=== PATIENT | male | born 1945 | race Caucasian/White ===

== ENCOUNTER 2024-03-22 20:12 | Emergency (ER) | payer MEDICARE ==
[2024-03-22] MEDS: SODIUM CHLORIDE 0.9% 1,000 ML IV STA (20:37)
[2024-03-22] MEDS: MORPHINE SULFATE 4 MG/ML SYRINGE IVP STA (20:38)
--- NOTE | 2024-03-22 20:55 | ED ---
Upper Extremity HPI - General Chief Complaint: Wound/Laceration Stated Complaint: Lft Hand Injury Time Seen by Provider: 03/22/24 20:18 Source: patient, RN notes reviewed Mode of arrival: EMS Limitations: no limitations - History of Present Illness Initial Comments: This is a 78-year-old male who presents to the emergency department for an injury to his left hand. States that he was putting a board through a table saw and it had gone in the wrong way and his left hand went inside by mistake. He injured all of the fingers on the left hand aside from the thumb. He is unable to move his pointer finger. Unsure when his last tetanus vaccine was. Pain is currently under control after being given morphine by EMS. MD Complaint: Injury to:: left, hand - Related Data Allergies Allergy/AdvReac Type Severity Reaction Status Date / Time No Known Allergies Allergy Verified 03/22/24 20:21 Review of Systems ROS Statement: Those systems with pertinent positive or pertinent negative responses have been documented in the HPI. ROS Other: All systems not noted in ROS Statement are negative. Past Medical History Past Medical History: Hypertension, Seizure Disorder Additional Past Medical History / Comment(s): No longer takes siezure meds. Only one siezure. History of Any Multi-Drug Resistant Organisms: None Reported Additional Past Surgical History / Comment(s): Left hand middle finger surgury 20 years ago. Finger bent backwards. Past Psychological History: No Psychological Hx Reported Smoking Status: Never smoker Past Alcohol Use History: None Reported Past Drug Use History: None Reported General Exam Limitations: no limitations General appearance: alert, in no apparent distress Head exam: Present: atraumatic, normocephalic, normal inspection Respiratory exam: Present: normal lung sounds bilaterally. Absent: respiratory distress, wheezes, rales, rhonchi, stridor Cardiovascular Exam: Present: regular rate, normal rhythm, normal heart sounds. Absent: systolic murmur, diastolic murmur, rubs, gallop, clicks Extremities exam: Present: other (The left index finger has a large open wound in the center with exposed tendon that is severed. Fingers 3 through 5 have large open jagged lacerations. Open fracture to the left fifth finger. Delayed cap refill in the fourth finger with dusky appearance.) Neurological exam: Present: alert, oriented X3, CN II-XII intact Psychiatric exam: Present: normal affect, normal mood Course Vital Signs 03/22/24 03/22/24 03/22/24 20:14 20:30 20:45 Temperature 98.2 F Pulse Rate 96 73 70 Respiratory 147 H 12 16 Rate Blood Pressure 179/113 179/113 115/94 O2 Sat by Pulse 98 95 97 Oximetry 03/22/24 03/22/24 03/22/24 21:00 21:15 22:15 Temperature Pulse Rate 85 85 75 Respiratory 18 16 16 Rate Blood Pressure 137/86 140/93 153/88 O2 Sat by Pulse 96 97 96 Oximetry 03/22/24 03/23/24 03/23/24 23:00 00:00 00:19 Temperature 97.8 F Pulse Rate 80 71 Respiratory 24 12 Rate Blood Pressure 132/86 147/93 O2 Sat by Pulse 95 97 Oximetry Procedures - Orthopedic Splinting/Casting Injury #1 Side: left Upper Extremity Injury Location: wrist Upper Extremity Immobilizer: volar splint Medical Decision Making - Medical Decision Making This is a 78 year old male who presents to the emergency department for a left hand injury. Was pt. sent in by a medical professional or institution? @ -No Did you speak to anyone other than the patient for history? @ -No Did you review nursing and triage notes? @ -Yes, and I agree, it is accurate with regards to the patient's symptoms. Were old charts reviewed? @ -No Differential Diagnosis? @ -Differential Musculoskeletal: Muscular strain, contusion, ligament sprain, fracture, arthritis, septic arthritis, bursitis, cellulitis, muscle spasm, nerve compression, DVT, arterial occlusion, herpes zoster, electrolyte abnormality, tumor.... This is not meant to be in all inclusive list EKG interpreted by me (3pts min.)? @ -EKG interpreted by me demonstrating the following: Sinus rhythm. Ventricular rate 78 bpm, ID interval 212 ms, QRS duration 93 ms, QTc 394 ms. X-rays interpreted by me (1pt min.)? @ -X-ray of the left hand obtained. My interpretation identifies a fracture of the left fifth finger and extensive soft tissue damage. CT interpreted by me (1pt min.)? @ -Not obtained U/S interpreted by me (1pt. min.)? @ -Not obtained What testing was considered but not performed? (CT, X-rays, U/S, labs)? Why? @ -None What meds were considered but not given? Why? @ -None Did you discuss the management of the patient with other professionals? @ -Yes, Dr. Mcclain, orthopedics, who advised transfer to a facility with a hand specialist available. Case then discussed with Dr. Livingston, hand specialist at [facility], who advised transfer to a tertiary facility where tendon grafts are available. Dr. Montes accepts the patient for ED to ED transfer at [facility]. Did you reconcile home meds? @ -No Was smoking cessation discussed for >3mins.? @ -No Was critical care preformed (if so, how long)? @ -No Were there social determinants of health that impacted care today? How? (Homelessness, low income, unemployed, alcoholism, drug addiction, transportation, low edu. Level, literacy, decrease access to med. care, longterm, rehab)? @ -No Was there de-escalation of care discussed even if they declined? (Discuss DNR or withdrawal of care, Hospice)? @ -No What co-morbidities impacted this encounter? (DM, HTN, Smoking, COPD, CAD, Cancer, CVA, Hep., AIDS, mental health diagnosis, sleep apnea, morbid obesity)? @ -None Was patient admitted / discharged? @ -Transferred. On arrival he was given 2 g of Kefzol and his tetanus vaccine was updated. The injuries were also cleansed by nursing staff. On exam the patient had extensive soft tissue damage on the palmar aspect of fingers 2 through 5 on his left hand. The index finger's tendon was exposed and severed and the patient had no flexion. He also had no flexion at the DIP joint to fingers 4 and 5. X-ray obtained demonstrating fractures to fingers 4 and 5, which were open. Given the extensive damage, it was not felt that this could be safely repaired in the emergency department and also carried a very high inf ection risk. It needed to go to the OR for washout and repair. Case discussed with Dr. Mcclain, orthopedics, who advised transfer. We did also try reaching out to our orthopedic hand specialist, however she was not on-call and we did not get a response. We obtained preoperative lab work which was unremarkable. Family requested transfer to either [facility] or [facility]. [facility] was contacted and they do not have the capability to care for this kind of injury. Their hand surgeon, Dr. Livingston, advised that he will likely need tendon grafts and recommended transfer to a tertiary facility. Case discussed with [facility] who accepts patient for ED to ED transfer. Dr. Montes is the accepting provider. The hand was bandaged with a large amount of padding on each finger and placed in a volar splint prior to transfer. Undiagnosed new problem with uncertain prognosis? @ -None Drug Therapy requiring intensive monitoring for toxicity (Heparin, Nitro, Insulin, Cardizem)? @ -None Were any procedures done? @ -Floor splint application of the left hand Diagnosis/symptom? @ -Soft tissue damage to the left hand, open fractures of the fingers on the left hand, flexor tendon injuries to the fingers of the left hand Acute, or Chronic, or Acute on Chronic? @ -Acute Uncomplicated (without systemic symptoms) or Complicated (systemic symptoms)? @ -Uncomplicated Side effects of treatment? @ -None Exacerbation, Progression, or Severe Exacerbation] @ -Not applicable Poses a threat to life or bodily function? @ -Yes, this will limit his use of the left hand. This case was discussed in detail with the attending ED physician, Dr. Chen. Presentation, findings, and treatment plan discussed in detail as well. - Lab Data Result diagrams: 03/22/24 20:51 03/22/24 20:51 Lab Results 03/22/24 03/22/24 03/22/24 Range/Units 20:51 20:51 20:51 WBC 8.6 (3.8-10.6) k/uL RBC 4.54 (4.30-5.90) m/uL Hgb 14.6 (13.0-17.5) gm/dL Hct 42.3 (39.0-53.0) % MCV 93.2 (80.0-100.0) fL MCH 32.1 (25.0-35.0) pg MCHC 34.4 (31.0-37.0) g/dL RDW 12.9 (11.5-15.5) % Plt Count 218 (150-450) k/uL MPV 7.1 Neutrophils % 75 % Lymphocytes % 14 % Monocytes % 8 % Eosinophils % 1 % Basophils % 0 % Neutrophils # 6.5 (1.3-7.7) k/uL Lymphocytes # 1.2 (1.0-4.8) k/uL Monocytes # 0.7 (0-1.0) k/uL Eosinophils # 0.1 (0-0.7) k/uL Basophils # 0.0 (0-0.2) k/uL PT 10.9 (10.0-12.5) sec INR 1.0 (<1.2) APTT 22.4 (22.0-30.0) sec Sodium 139 (137-145) mmol/L Potassium 3.9 (3.5-5.1) mmol/L Chloride 106 (98-107) mmol/L Carbon Dioxide 27 (22-30) mmol/L Anion Gap 6 mmol/L BUN 23 H (9-20) mg/dL Creatinine 1.02 (0.66-1.25) mg/dL Est GFR (CKD-EPI)AfAm 82 (>60 ml/min/1.73 sqM) Est GFR (CKD-EPI)NonAf 71 (>60 ml/min/1.73 sqM) Glucose 96 (74-99) mg/dL Calcium 9.1 (8.4-10.2) mg/dL Total Bilirubin 1.2 (0.2-1.3) mg/dL AST 24 (17-59) U/L ALT 19 (4-49) U/L Alkaline Phosphatase 62 (38-126) U/L Total Protein 6.2 L (6.3-8.2) g/dL Albumin 3.9 (3.5-5.0) g/dL - Radiology Data Radiology results: report reviewed, image reviewed Disposition Clinical Impression: Injury of flexor tendon of left hand, Soft tissue injury of left hand, Open fractures of multiple sites of phalanx of left hand Disposition: OTHER INSTITUTION NOT DEFINED Referrals: Xiao Jaime MD [Primary Care Provider] - 1-2 days - Out of Hospital Transfer - Req. Specs Out of Hospital Transfer - Requested Specifics: Other Emergency Center ([facility])
[2024-03-22] MEDS: DIPH,PERTUS(ACELL)TETVAC-LF 0.5 ML VIAL IM ONE (21:03)
[2024-03-22 21:11] LABS: Basophils % (A) 0 %; Eosinophils # (A) 0.1 k/uL (0-0.7); Eosinophils % (A) 1 %; HCT 42.3 % (39.0-53.0); HGB 14.6 gm/dL (13.0-17.5); Lymphocytes # (A) 1.2 k/uL (1.0-4.8); Lymphocytes % (A) 14 %; MCH 32.1 pg (25.0-35.0); MCHC 34.4 g/dL (31.0-37.0); MCV 93.2 fL (80.0-100.0); Mean Platelet Volume 7.1; Monocytes # (A) 0.7 k/uL (0-1.0); Monocytes % (A) 8 %; Neutrophils # (A) 6.5 k/uL (1.3-7.7); Neutrophils % (A) 75 %; Platelet Count 218 k/uL (150-450); RBC 4.54 m/uL (4.30-5.90); RDW 12.9 % (11.5-15.5); WBC 8.6 k/uL (3.8-10.6)
[2024-03-22 21:26] LABS: ALT 19 U/L (4-49); AST 24 U/L (17-59); African American GFR (CKD) 82 (>60 ml/min/1.73 sqM); Albumin 3.9 g/dL (3.5-5.0); Alkaline Phosphatase 62 U/L (38-126); Anion Gap 6 mmol/L; Blood Urea Nitrogen 23 mg/dL (9-20); Calcium 9.1 mg/dL (8.4-10.2); Carbon Dioxide 27 mmol/L (22-30); Chloride 106 mmol/L (98-107); Glucose 96 mg/dL (74-99); Non-African American GFR(CKD) 71 (>60 ml/min/1.73 sqM); Potassium 3.9 mmol/L (3.5-5.1); Sodium 139 mmol/L (137-145); Total Bilirubin 1.2 mg/dL (0.2-1.3); Total Protein 6.2 g/dL (6.3-8.2)
[2024-03-22 21:28] LABS: Partial Thromboplastin Time 22.4 sec (22.0-30.0); Prothrombin Time 10.9 sec (10.0-12.5)
--- NOTE | 2024-03-22 21:33 | XR ---
EXAMINATION TYPE: XR hand complete LT DATE OF EXAM: 03/22/2024 9:05 PM CLINICAL INDICATION:Male, 78 years old with history of Injury; [facility] COMPARISON: None TECHNIQUE: XR hand complete LT Frontal, lateral and oblique views were obtained. FINDINGS: There is a comminuted fracture/crush injury involving the distal phalanx of the fifth digit with overlying soft tissue defect. The digit appears partially covered by overlying cast. There is a curvilinear nondisplaced mildly comminuted fracture involving the distal aspect of the middle phalan x of the fourth digit. There is an associated soft tissue defect appreciated. There is isolated joint space effacement of the PIP joint of the third digit with associated deformity of the joint. Associa lisandro soft tissue swelling of the third digit. There is abnormal articulation of the middle phalanx at the PIP joint of the second digit which can be best appreciated on the oblique views. There is subtle cortical irregularity along the volar surface of the distal phalanx of the first digit. Additional o ssific focus is seen in the adjacent soft tissues concerning for additional fracture component. There is soft tissue edema seen involving the hand. The carpal bones appear intact with joint spaces overa ll maintained. IMPRESSION: Multiple fractures are seen involving the distal aspects of the left hand digits with associated soft tissue abnormalities as summarized described above. There is additional concern for possible disloca tion involving the second digit at the PIP joint. Correlate with exam findings.
[2024-03-22] MEDS: HYDROmorphone 1 MG/ML 1 ML SYRINGE IVP STA (22:00)
[2024-03-23] MEDS: HYDROmorphone 1 MG/ML 1 ML SYRINGE IVP STA (00:06)
[2024-03-23 00:07] VITALS: BP 147/93; PULSE 71; RESP 12
[2024-03-23 00:21] VITALS: TEMP 97.8
== END 2024-03-23 00:21 | disposition other institution (70) ==
LOC: EDBD 20:12 → EC 20:12
DX: S62.609A Fracture of unspecified phalanx of unspecified finger, initial encounter for closed fracture (principal); W23.0XXA Caught, crushed, jammed, or pinched between moving objects, initial encounter
CPT/HCPCS: 99285 ×2; 96365 ×2; 96375 ×3; 90471 ×2; 96376 ×2; 29125 ×2; 36415; 93005; 80053; 85025; 85610; 85730; 73130; 90715; J2270; J0690; J1170 ×2